=== PATIENT | male | born 1935 | race Caucasian/White ===

== ENCOUNTER 2022-10-07 07:06 | Emergency (ER) | payer OTHER ==
[2022-10-07 07:49] LABS: ESTIMATED GFR 54 mL/min (>60)
== END 2022-10-07 10:06 | disposition home or self-care (01) ==
LOC: FB.ED 07:06
DX: I50.9 Heart failure, unspecified (principal); E11.9 Type 2 diabetes mellitus without complications; D64.9 Anemia, unspecified; Z87.891 Personal history of nicotine dependence; Z95.0 Presence of cardiac pacemaker
CPT/HCPCS: 36415; 71045; 80053; 83880; 84484; 85025; 85610; 85730; 93005; 99285

== ENCOUNTER 2022-10-13 12:35 | Inpatient (IN) | payer MEDICARE, OTHER ==
[2022-10-13] MEDS ORDERED: Sodium Chloride 0.9% 10 ML Syringe FLUSH PRN (13:02)
[2022-10-13] MEDS ORDERED: Sodium Chloride 0.9% 500 ML IV ONE (13:26)
[2022-10-13 13:47] LABS: ESTIMATED GFR 59 mL/min (>60)
[2022-10-13 16:29] LABS: CORONAVIRUS COVID-19 NAA NEGATIVE (NEGATIVE)
[2022-10-13] MEDS ORDERED: Bisacodyl 10 MG Supp RECTAL PRN (16:50)
[2022-10-13] MEDS ORDERED: Phytonadione 5 MG Tab PO ONE (17:00)
[2022-10-13] MEDS ORDERED: Warfarin Sliding Scale PO SCH (17:00)
[2022-10-13] MEDS: Acetaminophen 325 MG Tab PO SCH ×2 (17:22→21:08)
[2022-10-13] MEDS: Sodium Chloride 0.9% 1,000 ML IV SCH (17:25)
[2022-10-13] MEDS ORDERED: CITALOPRAM 10 MG PO SCH (21:00)
[2022-10-13] MEDS ORDERED: Simvastatin 40 MG Tab *PT OWN MED PO SCH (21:00)
[2022-10-13] MEDS ORDERED: Metoprolol Succinate 50 MG Tab.ER *PT OWN MED PO SCH (21:00)
[2022-10-13] MEDS ORDERED: Melatonin 3 MG Tab PO ONE (21:00)
[2022-10-13] MEDS ORDERED: Melatonin 3 MG Tab PO SCH (21:00)
[2022-10-14] MEDS: Sodium Chloride 0.9% 1,000 ML IV SCH (03:25)
[2022-10-14 06:30] LABS: ESTIMATED GFR 66 mL/min (>60)
[2022-10-14] MEDS: Metoprolol Succinate 50 MG Tab.ER PO SCH ×2 (11:06→21:08)
[2022-10-14] MEDS: glipiZIDE 5 MG Tab.ER PO SCH (11:06)
[2022-10-14] MEDS: Ferrous Sulfate 325 MG Tab PO SCH (11:06)
[2022-10-14] MEDS: Acetaminophen 325 MG Tab PO SCH ×4 (11:38→21:09)
[2022-10-14] MEDS: Magnesium Chloride 64 MG Tab.ER PO SCH (11:40)
[2022-10-14] MEDS: Donepezil 5 MG Tab PO SCH (21:05)
[2022-10-14] MEDS: Citalopram 10 MG Tab PO SCH (21:06)
[2022-10-14] MEDS: Melatonin 3 MG Tab PO SCH (21:07)
[2022-10-14] MEDS: Tamsulosin 0.4 MG Cap.ER PO SCH (21:07)
[2022-10-14] MEDS: Simvastatin 40 MG Tab PO SCH (21:10)
[2022-10-15] MEDS: Magnesium Chloride 64 MG Tab.ER PO SCH (08:17)
[2022-10-15] MEDS: glipiZIDE 5 MG Tab.ER PO SCH (08:17)
[2022-10-15] MEDS: Acetaminophen 325 MG Tab PO SCH ×4 (08:17→20:10)
[2022-10-15] MEDS: Metoprolol Succinate 50 MG Tab.ER PO SCH ×2 (08:17→20:09)
[2022-10-15] MEDS: Ferrous Sulfate 325 MG Tab PO SCH (08:17)
[2022-10-15] MEDS ORDERED: QUEtiapine 25 MG Tab PO PRN (17:14)
[2022-10-15] MEDS ORDERED: LORazepam 0.5 MG Tab PO PRN (17:16)
[2022-10-15] MEDS: Donepezil 5 MG Tab PO SCH (20:07)
[2022-10-15] MEDS: Tamsulosin 0.4 MG Cap.ER PO SCH (20:07)
[2022-10-15] MEDS: Citalopram 10 MG Tab PO SCH (20:07)
[2022-10-15] MEDS: Melatonin 3 MG Tab PO SCH (20:08)
[2022-10-15] MEDS: Simvastatin 40 MG Tab PO SCH (20:08)
[2022-10-16] MEDS: Ferrous Sulfate 325 MG Tab PO SCH (11:00)
[2022-10-16] MEDS: Metoprolol Succinate 50 MG Tab.ER PO SCH ×2 (11:00→20:49)
[2022-10-16] MEDS: Magnesium Chloride 64 MG Tab.ER PO SCH (11:00)
[2022-10-16] MEDS: glipiZIDE 5 MG Tab.ER PO SCH (11:00)
[2022-10-16] MEDS: Acetaminophen 325 MG Tab PO SCH ×4 (11:01→20:45)
[2022-10-16] MEDS: Apixaban 5 MG Tab PO SCH ×2 (11:02→20:45)
[2022-10-16] MEDS: Donepezil 5 MG Tab PO SCH (20:45)
[2022-10-16] MEDS: Tamsulosin 0.4 MG Cap.ER PO SCH (20:45)
[2022-10-16] MEDS: Citalopram 10 MG Tab PO SCH (20:45)
[2022-10-16] MEDS: Melatonin 3 MG Tab PO SCH (20:45)
[2022-10-16] MEDS: Simvastatin 40 MG Tab PO SCH (20:47)
[2022-10-17] MEDS: Acetaminophen 325 MG Tab PO SCH ×4 (09:34→20:16)
[2022-10-17] MEDS: Metoprolol Succinate 50 MG Tab.ER PO SCH ×2 (09:35→20:15)
[2022-10-17] MEDS: Ferrous Sulfate 325 MG Tab PO SCH (09:36)
[2022-10-17] MEDS: glipiZIDE 5 MG Tab.ER PO SCH (09:36)
[2022-10-17] MEDS: Apixaban 5 MG Tab PO SCH ×2 (09:36→20:15)
[2022-10-17] MEDS: Magnesium Chloride 64 MG Tab.ER PO SCH (09:36)
[2022-10-17] MEDS: Polyethylene Glycol 3350 Powder 17 GM Packet PO SCH (09:45)
[2022-10-17] MEDS: Tamsulosin 0.4 MG Cap.ER PO SCH (20:14)
[2022-10-17] MEDS: Simvastatin 40 MG Tab PO SCH (20:14)
[2022-10-17] MEDS: Citalopram 10 MG Tab PO SCH (20:15)
[2022-10-17] MEDS: Donepezil 5 MG Tab PO SCH (20:15)
[2022-10-17] MEDS: Melatonin 3 MG Tab PO SCH (20:15)
[2022-10-18] MEDS: Acetaminophen 325 MG Tab PO SCH ×4 (08:25→20:10)
[2022-10-18] MEDS: Apixaban 5 MG Tab PO SCH ×2 (08:26→20:11)
[2022-10-18] MEDS: glipiZIDE 5 MG Tab.ER PO SCH (08:26)
[2022-10-18] MEDS: Ferrous Sulfate 325 MG Tab PO SCH (08:27)
[2022-10-18] MEDS: Metoprolol Succinate 50 MG Tab.ER PO SCH ×2 (08:27→20:13)
[2022-10-18] MEDS: Magnesium Chloride 64 MG Tab.ER PO SCH (08:27)
[2022-10-18] MEDS: Polyethylene Glycol 3350 Powder 17 GM Packet PO SCH (08:34)
[2022-10-18] MEDS: Tamsulosin 0.4 MG Cap.ER PO SCH (20:10)
[2022-10-18] MEDS: Citalopram 10 MG Tab PO SCH (20:11)
[2022-10-18] MEDS: Melatonin 3 MG Tab PO SCH (20:11)
[2022-10-18] MEDS: Simvastatin 40 MG Tab PO SCH (20:11)
[2022-10-18] MEDS: Donepezil 5 MG Tab PO SCH (20:11)
[2022-10-19] MEDS: Acetaminophen 325 MG Tab PO SCH ×2 (08:39→14:10)
[2022-10-19] MEDS: Metoprolol Succinate 50 MG Tab.ER PO SCH (08:40)
[2022-10-19] MEDS: Ferrous Sulfate 325 MG Tab PO SCH (08:40)
[2022-10-19] MEDS: glipiZIDE 5 MG Tab.ER PO SCH (08:40)
[2022-10-19] MEDS: Apixaban 5 MG Tab PO SCH (08:41)
[2022-10-19] MEDS: Magnesium Chloride 64 MG Tab.ER PO SCH (08:41)
[2022-10-19] MEDS: Polyethylene Glycol 3350 Powder 17 GM Packet PO SCH (08:45)
[2022-10-19] MEDS ORDERED: Lidocaine 4% 1 each Patch TOP SCH ×3 (13:45→13:50)
== END 2022-10-19 14:25 | disposition home health service (06) | DRG 556 ==
LOC: FB.ED 12:35 → FB.MS 16:27 → OBSVTOIN 10-14 11:21
PROVIDERS: ADMIT Family Medicine; ATTEND Family Medicine
DX: R26.2 Difficulty in walking, not elsewhere classified (principal); I50.22 Chronic systolic (congestive) heart failure; R53.1 Weakness; R29.818 Other symptoms and signs involving the nervous system; R41.89 Other symptoms and signs involving cognitive functions and awareness; D64.9 Anemia, unspecified; Z20.822 Contact with and (suspected) exposure to COVID-19; Z66 Do not resuscitate; R79.1 Abnormal coagulation profile; I48.0 Paroxysmal atrial fibrillation; E78.00 Pure hypercholesterolemia, unspecified; I25.10 Atherosclerotic heart disease of native coronary artery without angina pectoris; I11.0 Hypertensive heart disease with heart failure; Z96.642 Presence of left artificial hip joint; E86.0 Dehydration; R41.0 Disorientation, unspecified; M54.9 Dorsalgia, unspecified; E11.9 Type 2 diabetes mellitus without complications; M54.2 Cervicalgia; Z95.0 Presence of cardiac pacemaker; Z79.01 Long term (current) use of anticoagulants; Z79.899 Other long term (current) drug therapy
CPT/HCPCS: 0240U; 36415; 70450; 72072; 72100; 72125; 72192; 80048; 80053; 81001; 83605; 83735; 84484; 85025; 85610; 86140; 93005; 93010; 93306; 96360; 96361; 97116-GP; 97161-GP; 97165-GO; 97530-GO; 97530-GP; 97535-GO; 99223; 99233; 99238; 99285; A9270-GY; G0378; J7030; J7040; U0002

== ENCOUNTER 2022-12-22 14:36 | Emergency (ER) | payer MEDICARE, OTHER ==
[2022-12-22] MEDS ORDERED: Sodium Chloride 0.9% 1,000 ML IV ONE ×2 (14:59→16:40)
[2022-12-22 15:15] LABS: BASOPHILS PERCENT AUTO 0.7 % (0.3-3.8); EOSINOPHILS PERCENT AUTO 0.3 % (0.1-6.8); HEMATOCRIT 30.8 % (38.3-50.1); HEMOGLOBIN 10.3 g/dL (12.9-17.7); LYMPHOCYTES ABSOLUTE AUTO 0.8 x10-3/uL (0.5-4.5); LYMPHOCYTES PERCENT AUTO 16.9 % (15.8-45.3); MEAN CORPUSCULAR HEMOGLOBIN 32.9 pg (27.0-33.3); MEAN CORPUSCULAR HGB CONC 33.4 g/dL (28.7-35.3); MEAN CORPUSCULAR VOLUME 98.5 fL (80.8-98.7); MEAN PLATELET VOLUME 8.5 fL (6.7-11.0); MONOCYTES ABSOLUTE AUTO 0.6 x10-3/uL (0.0-1.2); MONOCYTES PERCENT AUTO 11.7 % (5.5-15.2); NEUTROPHILS ABSOLUTE AUTO 3.4 x10-3/uL (1.7-6.9); NEUTROPHILS PERCENT AUTO 70.4 % (40.3-71.8); PLATELET COUNT,PLT 147 x10(3)uL (117-477); RED BLOOD CELL COUNT 3.13 x10(6)uL (3.90-5.90); RED CELL DISTRIBUTION WIDTH 14.4 % (12.4-15.0); WHITE BLOOD CELL COUNT,WBC 4.9 x10-3/uL (3.2-10.1)
[2022-12-22 15:18] LABS: BLOOD UREA NITROGEN,BUN 33 mg/dL (7-18); CALCIUM 8.9 mg/dL (8.6-10.2); CARBON DIOXIDE,CO2 28 mmol/L (21-32); CHLORIDE,CL 101 mmol/L (100-110); CREATININE 1.5 mg/dL (0.70-1.30); EST CRCL DRUG DOSING (CG) 39.27 mL/min; ESTIMATED GFR 45 mL/min (>60); GLUCOSE RANDOM 106 mg/dL (80-116); POTASSIUM,K 4.7 mmol/L (3.5-5.3); SODIUM,NA 136 mmol/L (135-145)
[2022-12-22 15:20] LABS: INR 1.05 (1.00-1.24); PROTHROMBIN TIME 10.8 sec (9.0-11.1)
[2022-12-22 15:24] LABS: A/G RATIO 1.1; ALANINE AMINOTRANSFERASE,ALT 42 U/L (12-36); ALBUMIN 3.6 g/dL (3.2-4.6); ALKALINE PHOSPHATASE 66 IU/L (56-112); ASPARTATE AMNIOTRANSFERASE,AST 26 IU/L (5-25); BILIRUBIN TOTAL 0.4 mg/dL (0.1-1.3); PROTEIN TOTAL,TP 6.8 g/dL (6.0-8.0)
[2022-12-22 18:11] LABS: APPEARANCE,URINE CLEAR (CLEAR); BACTERIA,URINE FEW (NS); BILIRUBIN,URINE NEGATIVE (NEGATIVE); COLOR,URINE YELLOW (YELLOW); GLUCOSE,URINE NORMAL (NORMAL); KETONES,URINE NEGATIVE (NEGATIVE); LEUKOCYTE ESTERASE,URINE NEGATIVE (NEGATIVE); NITRITE,URINE NEGATIVE (NEGATIVE); OCCULT BLOOD,URINE NEGATIVE (NEGATIVE); PROTEIN,URINE NEGATIVE (NEGATIVE); RBC,URINE 0-5 (0-5); SQUAMOUS EPITHELIAL CELLS,UR FEW (NS,R,O); UROBILINOGEN,URINE NORMAL (NEGATIVE); WBC,URINE 0-5 (0-5)
== END 2022-12-22 18:26 ==
LOC: FB.ED 14:36
DX: E86.0 Dehydration (principal); R79.89 Other specified abnormal findings of blood chemistry; R63.0 Anorexia; F03.90 Unspecified dementia, unspecified severity, without behavioral disturbance, psychotic disturbance, mood disturbance, and anxiety; I11.0 Hypertensive heart disease with heart failure; I50.9 Heart failure, unspecified; I25.10 Atherosclerotic heart disease of native coronary artery without angina pectoris; E78.00 Pure hypercholesterolemia, unspecified; E11.9 Type 2 diabetes mellitus without complications; Z79.01 Long term (current) use of anticoagulants; Z95.1 Presence of aortocoronary bypass graft; Z79.84 Long term (current) use of oral hypoglycemic drugs; Z79.899 Other long term (current) drug therapy
CPT/HCPCS: 36415; 80053; 81001; 85025; 85610; 86140; 96360; 96361; 99285; J7030

== ENCOUNTER 2022-12-31 13:10 | Inpatient (IN) | payer MEDICARE, OTHER ==
[2022-12-31 13:37] LABS: BLOOD UREA NITROGEN,BUN 27 mg/dL (7-18); BUN/CREATININE RATIO 20.8 (9-20); CALCIUM 9.1 mg/dL (8.6-10.2); CARBON DIOXIDE,CO2 29 mmol/L (21-32); CHLORIDE,CL 102 mmol/L (100-110); CREATININE 1.3 mg/dL (0.70-1.30); ESTIMATED GFR 54 mL/min (>60); GLUCOSE RANDOM 130 mg/dL (80-116); POTASSIUM,K 4.5 mmol/L (3.5-5.3); SODIUM,NA 137 mmol/L (135-145)
[2022-12-31 13:38] LABS: BASOPHILS PERCENT AUTO 0.5 % (0.3-3.8); EOSINOPHILS PERCENT AUTO 0.5 % (0.1-6.8); HEMATOCRIT 31.6 % (38.3-50.1); HEMOGLOBIN 10.8 g/dL (12.9-17.7); LYMPHOCYTES ABSOLUTE AUTO 0.6 x10-3/uL (0.5-4.5); LYMPHOCYTES PERCENT AUTO 16.3 % (15.8-45.3); MEAN CORPUSCULAR VOLUME 96.9 fL (80.8-98.7); MEAN PLATELET VOLUME 8.2 fL (6.7-11.0); MONOCYTES ABSOLUTE AUTO 0.4 x10-3/uL (0.0-1.2); MONOCYTES PERCENT AUTO 11.2 % (5.5-15.2); NEUTROPHILS ABSOLUTE AUTO 2.8 x10-3/uL (1.7-6.9); NEUTROPHILS PERCENT AUTO 71.5 % (40.3-71.8); PLATELET COUNT,PLT 140 x10(3)uL (117-477); RED BLOOD CELL COUNT 3.26 x10(6)uL (3.90-5.90); RED CELL DISTRIBUTION WIDTH 14.1 % (12.4-15.0); WHITE BLOOD CELL COUNT,WBC 3.9 x10-3/uL (3.2-10.1)
[2022-12-31 13:48] LABS: A/G RATIO 1.2; ALANINE AMINOTRANSFERASE,ALT 33 U/L (12-36); ALBUMIN 3.6 g/dL (3.2-4.6); ALKALINE PHOSPHATASE 52 IU/L (56-112); ASPARTATE AMNIOTRANSFERASE,AST 26 IU/L (5-25); BILIRUBIN TOTAL 0.4 mg/dL (0.1-1.3); PROTEIN TOTAL,TP 6.5 g/dL (6.0-8.0)
[2022-12-31 13:50] LABS: TROPONIN I 19.5 pg/mL (4.0-60.3)
[2022-12-31] MEDS ORDERED: Sennosides/Docusate Sodium 50-8.6 MG Tab PO PRN (15:12)
[2022-12-31] MEDS ORDERED: Ondansetron 4 MG/2 ML SDV IV PRN (15:12)
[2022-12-31] MEDS ORDERED: guaiFENesin 100 MG/5 ML Soln 5 ML UD Cup PO PRN (15:22)
[2022-12-31] MEDS ORDERED: Loperamide 2 MG Cap PO PRN (15:22)
[2022-12-31] MEDS ORDERED: Polyethylene Glycol 3350 Powder 17 GM Packet PO PRN (15:22)
[2022-12-31] MEDS ORDERED: Magnesium Hydroxide 400 MG/5 ML Susp 30 ML Cup PO PRN (15:22)
[2022-12-31 15:51] LABS: BILIRUBIN,URINE NEGATIVE (NEGATIVE); GLUCOSE,URINE NORMAL (NORMAL); KETONES,URINE NEGATIVE (NEGATIVE); LEUKOCYTE ESTERASE,URINE NEGATIVE (NEGATIVE); NITRITE,URINE NEGATIVE (NEGATIVE); OCCULT BLOOD,URINE NEGATIVE (NEGATIVE); PROTEIN,URINE NEGATIVE (NEGATIVE); UROBILINOGEN,URINE NORMAL (NEGATIVE)
[2022-12-31 15:56] LABS: APPEARANCE,URINE CLEAR (CLEAR); BACTERIA,URINE RARE (NS); COLOR,URINE YELLOW (YELLOW); RBC,URINE 0-5 (0-5); SQUAMOUS EPITHELIAL CELLS,UR OCCASIONAL (NS,R,O); WBC,URINE 0-5 (0-5)
[2022-12-31] MEDS ORDERED: Aluminum Hydroxide/Magnesium Hydroxide Susp 30 ML Cup PO PRN (16:21)
[2022-12-31] MEDS ORDERED: Acetaminophen 325 MG Tab PO PRN (16:38)
[2022-12-31] MEDS ORDERED: Acetaminophen 325 MG Tab PO SCH (17:00)
[2022-12-31] MEDS: Citalopram 10 MG Tab PO SCH (20:49)
[2022-12-31] MEDS: Apixaban 5 MG Tab PO SCH (20:49)
[2022-12-31] MEDS: Donepezil 5 MG Tab PO SCH (20:49)
[2022-12-31] MEDS: Tamsulosin 0.4 MG Cap.ER PO SCH (20:49)
[2022-12-31] MEDS: Melatonin 3 MG Tab PO SCH (20:49)
[2022-12-31] MEDS: Calcium Carbonate 500 MG Tablet PO SCH (20:50)
[2022-12-31] MEDS: Metoprolol Succinate 50 MG Tab.ER PO SCH (20:50)
[2022-12-31] MEDS: Simvastatin 40 MG Tab PO SCH (20:50)
[2023-01-01 06:07] LABS: BASOPHILS PERCENT AUTO 0.4 % (0.3-3.8); EOSINOPHILS PERCENT AUTO 0.2 % (0.1-6.8); HEMATOCRIT 32.9 % (38.3-50.1); HEMOGLOBIN 11.1 g/dL (12.9-17.7); LYMPHOCYTES ABSOLUTE AUTO 0.9 x10-3/uL (0.5-4.5); LYMPHOCYTES PERCENT AUTO 15.3 % (15.8-45.3); MEAN CORPUSCULAR HEMOGLOBIN 32.8 pg (27.0-33.3); MEAN CORPUSCULAR HGB CONC 33.7 g/dL (28.7-35.3); MEAN CORPUSCULAR VOLUME 97.4 fL (80.8-98.7); MEAN PLATELET VOLUME 7.8 fL (6.7-11.0); MONOCYTES ABSOLUTE AUTO 0.5 x10-3/uL (0.0-1.2); MONOCYTES PERCENT AUTO 8.8 % (5.5-15.2); NEUTROPHILS ABSOLUTE AUTO 4.2 x10-3/uL (1.7-6.9); NEUTROPHILS PERCENT AUTO 75.3 % (40.3-71.8); PLATELET COUNT,PLT 156 x10(3)uL (117-477); RED BLOOD CELL COUNT 3.38 x10(6)uL (3.90-5.90); RED CELL DISTRIBUTION WIDTH 14.3 % (12.4-15.0); WHITE BLOOD CELL COUNT,WBC 5.6 x10-3/uL (3.2-10.1)
[2023-01-01 06:18] LABS: A/G RATIO 1.1; ALANINE AMINOTRANSFERASE,ALT 34 U/L (12-36); ALBUMIN 3.4 g/dL (3.2-4.6); ALKALINE PHOSPHATASE 56 IU/L (56-112); ASPARTATE AMNIOTRANSFERASE,AST 21 IU/L (5-25); BILIRUBIN TOTAL 0.5 mg/dL (0.1-1.3); BLOOD UREA NITROGEN,BUN 24 mg/dL (7-18); BUN/CREATININE RATIO 18.5 (9-20); CARBON DIOXIDE,CO2 28 mmol/L (21-32); CHLORIDE,CL 101 mmol/L (100-110); CREATININE 1.3 mg/dL (0.70-1.30); EST CRCL DRUG DOSING (CG) 46.38 mL/min; ESTIMATED GFR 54 mL/min (>60); GLUCOSE RANDOM 110 mg/dL (80-116); MAGNESIUM 1.8 mg/dL (1.8-2.5); PROTEIN TOTAL,TP 6.5 g/dL (6.0-8.0); SODIUM,NA 137 mmol/L (135-145)
[2023-01-01] MEDS: Furosemide 20 MG/2 ML VIAL IVPUSH SCH (08:50)
[2023-01-01] MEDS: Magnesium Chloride 64 MG Tab.ER PO SCH (08:50)
[2023-01-01] MEDS: Metoprolol Succinate 50 MG Tab.ER PO SCH ×2 (08:51→21:31)
[2023-01-01] MEDS: Lidocaine 4% 1 each Patch TOP SCH (08:52)
[2023-01-01] MEDS: Ferrous Sulfate 325 MG Tab PO SCH (08:52)
[2023-01-01] MEDS: Calcium Carbonate 500 MG Tablet PO SCH ×2 (08:52→21:31)
[2023-01-01] MEDS: Apixaban 5 MG Tab PO SCH ×2 (08:52→21:31)
[2023-01-01] MEDS: Cholecalciferol (Vitamin D3) 25 MCG Tab PO SCH (08:53)
[2023-01-01] MEDS ORDERED: Polyethylene Glycol 3350 Powder 17 GM Packet PO SCH (09:00)
[2023-01-01] MEDS ORDERED: glipiZIDE 5 MG Tab.ER PO SCH (09:00)
[2023-01-01] MEDS: Donepezil 5 MG Tab PO SCH (21:31)
[2023-01-01] MEDS: Melatonin 3 MG Tab PO SCH (21:31)
[2023-01-01] MEDS: Tamsulosin 0.4 MG Cap.ER PO SCH (21:31)
[2023-01-01] MEDS: Simvastatin 40 MG Tab PO SCH (21:31)
[2023-01-01] MEDS: Citalopram 10 MG Tab PO SCH (21:31)
[2023-01-02 06:48] LABS: BASOPHILS PERCENT AUTO 0.2 % (0.3-3.8); HEMATOCRIT 30.8 % (38.3-50.1); HEMOGLOBIN 10.5 g/dL (12.9-17.7); LYMPHOCYTES ABSOLUTE AUTO 0.4 x10-3/uL (0.5-4.5); MEAN CORPUSCULAR HEMOGLOBIN 33.1 pg (27.0-33.3); MEAN CORPUSCULAR HGB CONC 34.2 g/dL (28.7-35.3); MEAN CORPUSCULAR VOLUME 96.8 fL (80.8-98.7); MEAN PLATELET VOLUME 8.4 fL (6.7-11.0); MONOCYTES ABSOLUTE AUTO 0.5 x10-3/uL (0.0-1.2); MONOCYTES PERCENT AUTO 9.9 % (5.5-15.2); NEUTROPHILS ABSOLUTE AUTO 4.4 x10-3/uL (1.7-6.9); NEUTROPHILS PERCENT AUTO 82.9 % (40.3-71.8); PLATELET COUNT,PLT 130 x10(3)uL (117-477); RED BLOOD CELL COUNT 3.18 x10(6)uL (3.90-5.90); RED CELL DISTRIBUTION WIDTH 13.8 % (12.4-15.0); WHITE BLOOD CELL COUNT,WBC 5.3 x10-3/uL (3.2-10.1)
[2023-01-02] MEDS: Pantoprazole 40 MG Tab.CR PO SCH (06:53)
[2023-01-02 06:55] LABS: BLOOD UREA NITROGEN,BUN 22 mg/dL (7-18); BUN/CREATININE RATIO 18.3 (9-20); CALCIUM 8.9 mg/dL (8.6-10.2); CARBON DIOXIDE,CO2 28 mmol/L (21-32); CHLORIDE,CL 99 mmol/L (100-110); CREATININE 1.2 mg/dL (0.70-1.30); EST CRCL DRUG DOSING (CG) 50.24 mL/min; ESTIMATED GFR 59 mL/min (>60); GLUCOSE RANDOM 197 mg/dL (80-116); SODIUM,NA 135 mmol/L (135-145)
[2023-01-02] MEDS: Calcium Carbonate 500 MG Tablet PO SCH ×2 (08:56→20:22)
[2023-01-02] MEDS: Metoprolol Succinate 50 MG Tab.ER PO SCH ×2 (08:56→20:23)
[2023-01-02] MEDS: Cholecalciferol (Vitamin D3) 25 MCG Tab PO SCH (08:56)
[2023-01-02] MEDS: Ferrous Sulfate 325 MG Tab PO SCH (08:57)
[2023-01-02] MEDS: Apixaban 5 MG Tab PO SCH ×2 (08:57→20:21)
[2023-01-02] MEDS: Magnesium Chloride 64 MG Tab.ER PO SCH (08:57)
[2023-01-02] MEDS: Furosemide 20 MG/2 ML VIAL IVPUSH SCH (08:58)
[2023-01-02] MEDS: Empagliflozin 10 MG Tab PO SCH (08:58)
[2023-01-02] MEDS: Lidocaine 4% 1 each Patch TOP SCH (09:11)
[2023-01-02] MEDS: Furosemide 40 MG/4 ML VIAL IV SCH ×2 (13:02→20:22)
[2023-01-02] MEDS: cefTRIAXone 1 GM Vial IVPUSH SCH (13:03)
[2023-01-02] MEDS: Sodium Chloride 0.9% 10 ML Syringe FLUSH PRN ×3 (13:04→20:25)
[2023-01-02] MEDS: Donepezil 5 MG Tab PO SCH (20:21)
[2023-01-02] MEDS: Tamsulosin 0.4 MG Cap.ER PO SCH (20:21)
[2023-01-02] MEDS: Citalopram 10 MG Tab PO SCH (20:21)
[2023-01-02] MEDS: Melatonin 3 MG Tab PO SCH (20:22)
[2023-01-02] MEDS: Simvastatin 40 MG Tab PO SCH (20:23)
[2023-01-03] MEDS: Pantoprazole 40 MG Tab.CR PO SCH (06:02)
[2023-01-03 06:21] LABS: BASOPHILS PERCENT AUTO 0.4 % (0.3-3.8); EOSINOPHILS PERCENT AUTO 0.5 % (0.1-6.8); HEMATOCRIT 32.9 % (38.3-50.1); HEMOGLOBIN 11.2 g/dL (12.9-17.7); LYMPHOCYTES ABSOLUTE AUTO 0.7 x10-3/uL (0.5-4.5); LYMPHOCYTES PERCENT AUTO 16.7 % (15.8-45.3); MEAN CORPUSCULAR HEMOGLOBIN 32.5 pg (27.0-33.3); MEAN CORPUSCULAR HGB CONC 33.9 g/dL (28.7-35.3); MEAN CORPUSCULAR VOLUME 95.9 fL (80.8-98.7); MEAN PLATELET VOLUME 8.4 fL (6.7-11.0); MONOCYTES ABSOLUTE AUTO 0.6 x10-3/uL (0.0-1.2); MONOCYTES PERCENT AUTO 13.9 % (5.5-15.2); NEUTROPHILS PERCENT AUTO 68.5 % (40.3-71.8); PLATELET COUNT,PLT 141 x10(3)uL (117-477); RED BLOOD CELL COUNT 3.44 x10(6)uL (3.90-5.90); RED CELL DISTRIBUTION WIDTH 13.6 % (12.4-15.0); WHITE BLOOD CELL COUNT,WBC 4.4 x10-3/uL (3.2-10.1)
[2023-01-03 06:30] LABS: BLOOD UREA NITROGEN,BUN 29 mg/dL (7-18); BUN/CREATININE RATIO 20.7 (9-20); CARBON DIOXIDE,CO2 30 mmol/L (21-32); CHLORIDE,CL 97 mmol/L (100-110); CREATININE 1.4 mg/dL (0.70-1.30); ESTIMATED GFR 49 mL/min (>60); GLUCOSE RANDOM 136 mg/dL (80-116); POTASSIUM,K 3.3 mmol/L (3.5-5.3); SODIUM,NA 136 mmol/L (135-145)
[2023-01-03 06:31] LABS: EST CRCL DRUG DOSING (CG) 40.39 mL/min
[2023-01-03] MEDS: Lidocaine 4% 1 each Patch TOP SCH (08:07)
[2023-01-03] MEDS: Magnesium Chloride 64 MG Tab.ER PO SCH (08:19)
[2023-01-03] MEDS: Cholecalciferol (Vitamin D3) 25 MCG Tab PO SCH (08:20)
[2023-01-03] MEDS: Empagliflozin 10 MG Tab PO SCH (08:20)
[2023-01-03] MEDS: Ferrous Sulfate 325 MG Tab PO SCH (08:21)
[2023-01-03] MEDS: Apixaban 5 MG Tab PO SCH ×2 (08:21→20:52)
[2023-01-03] MEDS: Metoprolol Succinate 50 MG Tab.ER PO SCH ×2 (08:22→20:53)
[2023-01-03] MEDS: Furosemide 40 MG/4 ML VIAL IV SCH (08:34)
[2023-01-03] MEDS: Sodium Chloride 0.9% 10 ML Syringe FLUSH PRN ×2 (08:39→13:10)
[2023-01-03] MEDS ORDERED: Potassium Chloride 20 MEQ Tab.ER PO ONE (10:32)
[2023-01-03] MEDS: Potassium Chloride 20 MEQ Tab.ER PO SCH (12:10)
[2023-01-03] MEDS: Calcium Carbonate 500 MG Tablet PO SCH ×2 (12:11→20:52)
[2023-01-03] MEDS: cefTRIAXone 1 GM Vial IVPUSH SCH (13:06)
[2023-01-03] MEDS: Donepezil 5 MG Tab PO SCH (20:52)
[2023-01-03] MEDS: Tamsulosin 0.4 MG Cap.ER PO SCH (20:52)
[2023-01-03] MEDS: Citalopram 10 MG Tab PO SCH (20:52)
[2023-01-03] MEDS: Melatonin 3 MG Tab PO SCH (20:52)
[2023-01-03] MEDS: Simvastatin 40 MG Tab PO SCH (20:53)
[2023-01-04] MEDS: Pantoprazole 40 MG Tab.CR PO SCH (05:29)
[2023-01-04 06:51] LABS: BASOPHILS PERCENT AUTO 0.4 % (0.3-3.8); EOSINOPHILS ABSOLUTE AUTO 0.1 x10-3/uL (0.0-0.6); EOSINOPHILS PERCENT AUTO 1.2 % (0.1-6.8); HEMATOCRIT 32.8 % (38.3-50.1); HEMOGLOBIN 11.2 g/dL (12.9-17.7); LYMPHOCYTES ABSOLUTE AUTO 0.7 x10-3/uL (0.5-4.5); LYMPHOCYTES PERCENT AUTO 17.6 % (15.8-45.3); MEAN PLATELET VOLUME 8.5 fL (6.7-11.0); MONOCYTES ABSOLUTE AUTO 0.6 x10-3/uL (0.0-1.2); MONOCYTES PERCENT AUTO 13.3 % (5.5-15.2); NEUTROPHILS ABSOLUTE AUTO 2.8 x10-3/uL (1.7-6.9); NEUTROPHILS PERCENT AUTO 67.5 % (40.3-71.8); PLATELET COUNT,PLT 143 x10(3)uL (117-477); RED BLOOD CELL COUNT 3.38 x10(6)uL (3.90-5.90); RED CELL DISTRIBUTION WIDTH 13.7 % (12.4-15.0); WHITE BLOOD CELL COUNT,WBC 4.2 x10-3/uL (3.2-10.1)
[2023-01-04 06:54] LABS: BLOOD UREA NITROGEN,BUN 37 mg/dL (7-18); BUN/CREATININE RATIO 26.4 (9-20); CALCIUM 8.7 mg/dL (8.6-10.2); CARBON DIOXIDE,CO2 31 mmol/L (21-32); CHLORIDE,CL 100 mmol/L (100-110); CREATININE 1.4 mg/dL (0.70-1.30); ESTIMATED GFR 49 mL/min (>60); GLUCOSE RANDOM 146 mg/dL (80-116); POTASSIUM,K 3.7 mmol/L (3.5-5.3); SODIUM,NA 137 mmol/L (135-145)
[2023-01-04] MEDS ORDERED: Furosemide 40 MG Tab PO ONE (07:10)
[2023-01-04] MEDS: Lidocaine 4% 1 each Patch TOP SCH (08:13)
[2023-01-04] MEDS: Amoxicillin/Clavulanate K 875-125 MG Tab PO SCH ×2 (08:19→17:34)
[2023-01-04] MEDS: Apixaban 5 MG Tab PO SCH ×2 (08:20→20:15)
[2023-01-04] MEDS: Ferrous Sulfate 325 MG Tab PO SCH (08:21)
[2023-01-04] MEDS: Empagliflozin 10 MG Tab PO SCH (08:21)
[2023-01-04] MEDS: Potassium Chloride 20 MEQ Tab.ER PO SCH (08:22)
[2023-01-04] MEDS: Magnesium Chloride 64 MG Tab.ER PO SCH (08:22)
[2023-01-04] MEDS: Calcium Carbonate 500 MG Tablet PO SCH ×2 (08:23→20:15)
[2023-01-04] MEDS: Metoprolol Succinate 50 MG Tab.ER PO SCH ×2 (08:24→22:01)
[2023-01-04] MEDS: Cholecalciferol (Vitamin D3) 25 MCG Tab PO SCH (08:24)
[2023-01-04] MEDS: Donepezil 5 MG Tab PO SCH (20:15)
[2023-01-04] MEDS: Citalopram 10 MG Tab PO SCH (20:15)
[2023-01-04] MEDS: Tamsulosin 0.4 MG Cap.ER PO SCH (20:15)
[2023-01-04] MEDS: Simvastatin 40 MG Tab PO SCH (20:16)
[2023-01-04] MEDS: Melatonin 3 MG Tab PO SCH (20:17)
[2023-01-04] MEDS: Sodium Chloride 0.9% 10 ML Syringe FLUSH PRN (22:18)
[2023-01-05] MEDS: Pantoprazole 40 MG Tab.CR PO SCH (05:45)
[2023-01-05 06:37] LABS: EOSINOPHILS PERCENT AUTO 0.9 % (0.1-6.8); HEMATOCRIT 32.1 % (38.3-50.1); HEMOGLOBIN 11.1 g/dL (12.9-17.7); LYMPHOCYTES ABSOLUTE AUTO 0.7 x10-3/uL (0.5-4.5); LYMPHOCYTES PERCENT AUTO 16.2 % (15.8-45.3); MEAN CORPUSCULAR HEMOGLOBIN 33.2 pg (27.0-33.3); MEAN CORPUSCULAR HGB CONC 34.6 g/dL (28.7-35.3); MEAN PLATELET VOLUME 8.1 fL (6.7-11.0); MONOCYTES ABSOLUTE AUTO 0.5 x10-3/uL (0.0-1.2); MONOCYTES PERCENT AUTO 11.4 % (5.5-15.2); NEUTROPHILS ABSOLUTE AUTO 2.8 x10-3/uL (1.7-6.9); NEUTROPHILS PERCENT AUTO 70.5 % (40.3-71.8); PLATELET COUNT,PLT 151 x10(3)uL (117-477); RED BLOOD CELL COUNT 3.34 x10(6)uL (3.90-5.90); RED CELL DISTRIBUTION WIDTH 13.4 % (12.4-15.0)
[2023-01-05 06:43] LABS: BLOOD UREA NITROGEN,BUN 38 mg/dL (7-18); BUN/CREATININE RATIO 27.1 (9-20); CARBON DIOXIDE,CO2 30 mmol/L (21-32); CHLORIDE,CL 101 mmol/L (100-110); CREATININE 1.4 mg/dL (0.70-1.30); ESTIMATED GFR 49 mL/min (>60); GLUCOSE RANDOM 145 mg/dL (80-116); POTASSIUM,K 4.2 mmol/L (3.5-5.3); SODIUM,NA 138 mmol/L (135-145)
[2023-01-05] MEDS: Lidocaine 4% 1 each Patch TOP SCH (08:01)
[2023-01-05] MEDS: Amoxicillin/Clavulanate K 875-125 MG Tab PO SCH ×2 (08:06→17:54)
[2023-01-05] MEDS: Ferrous Sulfate 325 MG Tab PO SCH (08:07)
[2023-01-05] MEDS: Apixaban 5 MG Tab PO SCH ×2 (08:07→20:26)
[2023-01-05] MEDS: Empagliflozin 10 MG Tab PO SCH (08:08)
[2023-01-05] MEDS: Magnesium Chloride 64 MG Tab.ER PO SCH (08:09)
[2023-01-05] MEDS: Calcium Carbonate 500 MG Tablet PO SCH ×2 (08:09→20:26)
[2023-01-05] MEDS: Metoprolol Succinate 50 MG Tab.ER PO SCH ×2 (08:10→20:34)
[2023-01-05] MEDS: Cholecalciferol (Vitamin D3) 25 MCG Tab PO SCH (08:11)
[2023-01-05] MEDS: Potassium Chloride 20 MEQ Tab.ER PO SCH (08:11)
[2023-01-05] MEDS ORDERED: Furosemide 20 MG Tab PO ONE (08:46)
[2023-01-05] MEDS: Tamsulosin 0.4 MG Cap.ER PO SCH (20:26)
[2023-01-05] MEDS: Melatonin 3 MG Tab PO SCH (20:26)
[2023-01-05] MEDS: Citalopram 10 MG Tab PO SCH (20:26)
[2023-01-05] MEDS: Donepezil 5 MG Tab PO SCH (20:26)
[2023-01-05] MEDS: Simvastatin 40 MG Tab PO SCH (20:35)
[2023-01-06] MEDS: Pantoprazole 40 MG Tab.CR PO SCH (05:48)
[2023-01-06 05:56] LABS: BLOOD UREA NITROGEN,BUN 38 mg/dL (7-18); BUN/CREATININE RATIO 27.1 (9-20); CALCIUM 9.1 mg/dL (8.6-10.2); CARBON DIOXIDE,CO2 30 mmol/L (21-32); CHLORIDE,CL 103 mmol/L (100-110); CREATININE 1.4 mg/dL (0.70-1.30); ESTIMATED GFR 49 mL/min (>60); GLUCOSE RANDOM 148 mg/dL (80-116); POTASSIUM,K 4.7 mmol/L (3.5-5.3); SODIUM,NA 140 mmol/L (135-145)
[2023-01-06 06:02] LABS: EOSINOPHILS ABSOLUTE AUTO 0.1 x10-3/uL (0.0-0.6); EOSINOPHILS PERCENT AUTO 1.3 % (0.1-6.8); HEMATOCRIT 32.9 % (38.3-50.1); HEMOGLOBIN 11.3 g/dL (12.9-17.7); LYMPHOCYTES PERCENT AUTO 20.7 % (15.8-45.3); MEAN CORPUSCULAR HEMOGLOBIN 33.5 pg (27.0-33.3); MEAN CORPUSCULAR HGB CONC 34.5 g/dL (28.7-35.3); MEAN CORPUSCULAR VOLUME 97.1 fL (80.8-98.7); MEAN PLATELET VOLUME 8.2 fL (6.7-11.0); MONOCYTES ABSOLUTE AUTO 0.6 x10-3/uL (0.0-1.2); MONOCYTES PERCENT AUTO 12.9 % (5.5-15.2); NEUTROPHILS ABSOLUTE AUTO 3.2 x10-3/uL (1.7-6.9); NEUTROPHILS PERCENT AUTO 64.1 % (40.3-71.8); PLATELET COUNT,PLT 153 x10(3)uL (117-477); RED BLOOD CELL COUNT 3.39 x10(6)uL (3.90-5.90); RED CELL DISTRIBUTION WIDTH 13.5 % (12.4-15.0); WHITE BLOOD CELL COUNT,WBC 4.9 x10-3/uL (3.2-10.1)
[2023-01-06] MEDS: Lidocaine 4% 1 each Patch TOP SCH (08:16)
[2023-01-06] MEDS: Apixaban 5 MG Tab PO SCH (08:17)
[2023-01-06] MEDS: Amoxicillin/Clavulanate K 875-125 MG Tab PO SCH (08:17)
[2023-01-06] MEDS: Empagliflozin 10 MG Tab PO SCH (08:18)
[2023-01-06] MEDS: Potassium Chloride 20 MEQ Tab.ER PO SCH (08:18)
[2023-01-06] MEDS: Ferrous Sulfate 325 MG Tab PO SCH (08:18)
[2023-01-06] MEDS: Calcium Carbonate 500 MG Tablet PO SCH (08:19)
[2023-01-06] MEDS: Magnesium Chloride 64 MG Tab.ER PO SCH (08:19)
[2023-01-06] MEDS: Cholecalciferol (Vitamin D3) 25 MCG Tab PO SCH (08:20)
[2023-01-06] MEDS: Metoprolol Succinate 50 MG Tab.ER PO SCH (08:23)
== END 2023-01-06 07:00 | DRG 193 ==
LOC: FB.ED 13:10 → FB.MS 15:12 → UNDOADMIN 15:46 → UNDODISIN 01-06 07:00
PROVIDERS: ADMIT Family Medicine; ATTEND Student in an Organized Health Care Education/Training Program
DX: J18.9 Pneumonia, unspecified organism (principal); G93.41 Metabolic encephalopathy; J90 Pleural effusion, not elsewhere classified; G93.40 Encephalopathy, unspecified; I13.0 Hypertensive heart and chronic kidney disease with heart failure and stage 1 through stage 4 chronic kidney disease, or unspecified chronic kidney disease; I50.22 Chronic systolic (congestive) heart failure; H90.3 Sensorineural hearing loss, bilateral; I48.0 Paroxysmal atrial fibrillation; I25.5 Ischemic cardiomyopathy; N40.0 Benign prostatic hyperplasia without lower urinary tract symptoms; R32 Unspecified urinary incontinence; F03.90 Unspecified dementia, unspecified severity, without behavioral disturbance, psychotic disturbance, mood disturbance, and anxiety; E11.22 Type 2 diabetes mellitus with diabetic chronic kidney disease; E86.0 Dehydration; N18.31 Chronic kidney disease, stage 3a; E11.40 Type 2 diabetes mellitus with diabetic neuropathy, unspecified; Z96.649 Presence of unspecified artificial hip joint; D63.1 Anemia in chronic kidney disease; E78.00 Pure hypercholesterolemia, unspecified; I25.10 Atherosclerotic heart disease of native coronary artery without angina pectoris; Z95.0 Presence of cardiac pacemaker; Z98.890 Other specified postprocedural states; Z86.010 Personal history of colon polyps; Z95.1 Presence of aortocoronary bypass graft; Z87.891 Personal history of nicotine dependence; Z85.038 Personal history of other malignant neoplasm of large intestine; Z79.899 Other long term (current) drug therapy; Z79.84 Long term (current) use of oral hypoglycemic drugs; Z79.01 Long term (current) use of anticoagulants
CPT/HCPCS: 36415; 70450; 71045; 80048; 80053; 81001; 83735; 83880; 84484; 85025; 87040; 93005; 93010; 97116-GP; 97161-GP; 97165-GO; 97530-GO; 97535-GO; 99223; 99233; 99238; 99285; A9270-GY; C8929; J0696; J1940; J3490

== ENCOUNTER 2023-01-06 07:00 | Inpatient (IN) | payer MEDICARE, OTHER ==
[2023-01-06] MEDS ORDERED: guaiFENesin 100 MG/5 ML Soln 5 ML UD Cup PO PRN (08:52)
[2023-01-06] MEDS ORDERED: Magnesium Hydroxide 400 MG/5 ML Susp 30 ML Cup PO PRN (08:52)
[2023-01-06] MEDS ORDERED: Polyethylene Glycol 3350 Powder 17 GM Packet PO PRN (08:52)
[2023-01-06] MEDS ORDERED: Loperamide 2 MG Cap PO PRN (08:52)
[2023-01-06] MEDS ORDERED: Acetaminophen 325 MG Tab PO PRN (09:00)
[2023-01-06] MEDS: Furosemide 40 MG Tab PO SCH (10:54)
[2023-01-06] MEDS: Amoxicillin/Clavulanate K 875-125 MG Tab PO SCH (20:55)
[2023-01-06] MEDS: Simvastatin 40 MG Tab PO SCH (21:00)
[2023-01-06] MEDS: Calcium Carbonate 500 MG Tablet PO SCH (21:01)
[2023-01-06] MEDS: Donepezil 5 MG Tab PO SCH (21:01)
[2023-01-06] MEDS: Tamsulosin 0.4 MG Cap.ER PO SCH (21:01)
[2023-01-06] MEDS: Citalopram 10 MG Tab PO SCH (21:02)
[2023-01-06] MEDS: Apixaban 5 MG Tab PO SCH (21:02)
[2023-01-06] MEDS: Melatonin 3 MG Tab PO SCH (21:02)
[2023-01-06] MEDS: Metoprolol Succinate 50 MG Tab.ER PO SCH (21:03)
[2023-01-07] MEDS: Pantoprazole 40 MG Tab.CR PO SCH (06:21)
[2023-01-07] MEDS: Apixaban 5 MG Tab PO SCH ×2 (08:16→21:00)
[2023-01-07] MEDS: Amoxicillin/Clavulanate K 875-125 MG Tab PO SCH ×2 (08:16→21:00)
[2023-01-07] MEDS: Magnesium Chloride 64 MG Tab.ER PO SCH (08:16)
[2023-01-07] MEDS: Calcium Carbonate 500 MG Tablet PO SCH ×2 (08:16→21:01)
[2023-01-07] MEDS: Furosemide 40 MG Tab PO SCH (08:17)
[2023-01-07] MEDS: Ferrous Sulfate 325 MG Tab PO SCH (08:17)
[2023-01-07] MEDS: Metoprolol Succinate 50 MG Tab.ER PO SCH ×2 (08:17→21:03)
[2023-01-07] MEDS: Cholecalciferol (Vitamin D3) 25 MCG Tab PO SCH (08:17)
[2023-01-07] MEDS: Empagliflozin 10 MG Tab PO SCH (08:17)
[2023-01-07] MEDS: Potassium Chloride 20 MEQ Tab.ER PO SCH (08:17)
[2023-01-07] MEDS: Lidocaine 4% 1 each Patch TOP SCH (08:17)
[2023-01-07] MEDS: Citalopram 10 MG Tab PO SCH (21:00)
[2023-01-07] MEDS: Tamsulosin 0.4 MG Cap.ER PO SCH (21:00)
[2023-01-07] MEDS: Donepezil 5 MG Tab PO SCH (21:00)
[2023-01-07] MEDS: Melatonin 3 MG Tab PO SCH (21:01)
[2023-01-07] MEDS: Simvastatin 40 MG Tab PO SCH (21:02)
[2023-01-08] MEDS: Pantoprazole 40 MG Tab.CR PO SCH (06:06)
[2023-01-08] MEDS: Furosemide 40 MG Tab PO SCH (09:19)
[2023-01-08] MEDS: Ferrous Sulfate 325 MG Tab PO SCH (09:19)
[2023-01-08] MEDS: Lidocaine 4% 1 each Patch TOP SCH (09:19)
[2023-01-08] MEDS: Calcium Carbonate 500 MG Tablet PO SCH ×2 (09:19→20:26)
[2023-01-08] MEDS: Amoxicillin/Clavulanate K 875-125 MG Tab PO SCH ×2 (09:19→20:25)
[2023-01-08] MEDS: Apixaban 5 MG Tab PO SCH ×2 (09:20→20:25)
[2023-01-08] MEDS: Magnesium Chloride 64 MG Tab.ER PO SCH (09:20)
[2023-01-08] MEDS: Cholecalciferol (Vitamin D3) 25 MCG Tab PO SCH (09:20)
[2023-01-08] MEDS: Empagliflozin 10 MG Tab PO SCH (09:20)
[2023-01-08] MEDS: Metoprolol Succinate 50 MG Tab.ER PO SCH ×2 (09:20→20:27)
[2023-01-08] MEDS: Potassium Chloride 20 MEQ Tab.ER PO SCH (09:20)
[2023-01-08] MEDS: Citalopram 10 MG Tab PO SCH (20:25)
[2023-01-08] MEDS: Donepezil 5 MG Tab PO SCH (20:25)
[2023-01-08] MEDS: Simvastatin 40 MG Tab PO SCH (20:26)
[2023-01-08] MEDS: Melatonin 3 MG Tab PO SCH (20:26)
[2023-01-08] MEDS: Tamsulosin 0.4 MG Cap.ER PO SCH (20:26)
[2023-01-09] MEDS: Pantoprazole 40 MG Tab.CR PO SCH (05:11)
[2023-01-09] MEDS: Empagliflozin 10 MG Tab PO SCH (08:19)
[2023-01-09] MEDS: Lidocaine 4% 1 each Patch TOP SCH (08:19)
[2023-01-09] MEDS: Cholecalciferol (Vitamin D3) 25 MCG Tab PO SCH (08:19)
[2023-01-09] MEDS: Metoprolol Succinate 50 MG Tab.ER PO SCH ×2 (08:19→20:21)
[2023-01-09] MEDS: Apixaban 5 MG Tab PO SCH ×2 (08:20→20:21)
[2023-01-09] MEDS: Calcium Carbonate 500 MG Tablet PO SCH ×2 (08:20→20:21)
[2023-01-09] MEDS: Magnesium Chloride 64 MG Tab.ER PO SCH (08:20)
[2023-01-09] MEDS: Potassium Chloride 20 MEQ Tab.ER PO SCH (08:21)
[2023-01-09] MEDS: Furosemide 40 MG Tab PO SCH (08:21)
[2023-01-09] MEDS: Ferrous Sulfate 325 MG Tab PO SCH (08:22)
[2023-01-09] MEDS: Citalopram 10 MG Tab PO SCH (20:21)
[2023-01-09] MEDS: Tamsulosin 0.4 MG Cap.ER PO SCH (20:21)
[2023-01-09] MEDS: Donepezil 5 MG Tab PO SCH (20:21)
[2023-01-09] MEDS: Melatonin 3 MG Tab PO SCH (20:21)
[2023-01-09] MEDS: Simvastatin 40 MG Tab PO SCH (20:21)
[2023-01-10] MEDS: Pantoprazole 40 MG Tab.CR PO SCH (06:13)
[2023-01-10] MEDS: Furosemide 40 MG Tab PO SCH (09:30)
[2023-01-10] MEDS: Potassium Chloride 20 MEQ Tab.ER PO SCH (09:30)
[2023-01-10] MEDS: Apixaban 5 MG Tab PO SCH ×2 (09:30→20:06)
[2023-01-10] MEDS: Lidocaine 4% 1 each Patch TOP SCH (09:30)
[2023-01-10] MEDS: Metoprolol Succinate 50 MG Tab.ER PO SCH ×2 (09:30→20:06)
[2023-01-10] MEDS: Calcium Carbonate 500 MG Tablet PO SCH ×2 (09:30→20:06)
[2023-01-10] MEDS: Magnesium Chloride 64 MG Tab.ER PO SCH (09:30)
[2023-01-10] MEDS: Ferrous Sulfate 325 MG Tab PO SCH (09:30)
[2023-01-10] MEDS: Empagliflozin 10 MG Tab PO SCH (09:31)
[2023-01-10] MEDS: Cholecalciferol (Vitamin D3) 25 MCG Tab PO SCH (09:31)
[2023-01-10] MEDS: Citalopram 10 MG Tab PO SCH (20:06)
[2023-01-10] MEDS: Simvastatin 40 MG Tab PO SCH (20:06)
[2023-01-10] MEDS: Donepezil 5 MG Tab PO SCH (20:06)
[2023-01-10] MEDS: Melatonin 3 MG Tab PO SCH (20:06)
[2023-01-10] MEDS: Tamsulosin 0.4 MG Cap.ER PO SCH (20:06)
[2023-01-11] MEDS: Pantoprazole 40 MG Tab.CR PO SCH (06:13)
[2023-01-11] MEDS: Apixaban 5 MG Tab PO SCH ×2 (08:05→20:24)
[2023-01-11] MEDS: Lidocaine 4% 1 each Patch TOP SCH (08:05)
[2023-01-11] MEDS: Ferrous Sulfate 325 MG Tab PO SCH (08:06)
[2023-01-11] MEDS: Empagliflozin 10 MG Tab PO SCH (08:06)
[2023-01-11] MEDS: Potassium Chloride 20 MEQ Tab.ER PO SCH (08:06)
[2023-01-11] MEDS: Furosemide 40 MG Tab PO SCH (08:07)
[2023-01-11] MEDS: Magnesium Chloride 64 MG Tab.ER PO SCH (08:07)
[2023-01-11] MEDS: Calcium Carbonate 500 MG Tablet PO SCH ×2 (08:08→20:24)
[2023-01-11] MEDS: Metoprolol Succinate 50 MG Tab.ER PO SCH ×2 (08:08→20:24)
[2023-01-11] MEDS: Cholecalciferol (Vitamin D3) 25 MCG Tab PO SCH (08:09)
[2023-01-11] MEDS: Donepezil 5 MG Tab PO SCH (20:22)
[2023-01-11] MEDS: Melatonin 3 MG Tab PO SCH (20:24)
[2023-01-11] MEDS: Citalopram 10 MG Tab PO SCH (20:24)
[2023-01-11] MEDS: Tamsulosin 0.4 MG Cap.ER PO SCH (20:24)
[2023-01-11] MEDS: Simvastatin 40 MG Tab PO SCH (20:24)
[2023-01-12] MEDS: Pantoprazole 40 MG Tab.CR PO SCH (06:10)
[2023-01-12] MEDS: Magnesium Chloride 64 MG Tab.ER PO SCH (08:12)
[2023-01-12] MEDS: Metoprolol Succinate 50 MG Tab.ER PO SCH ×2 (08:12→20:17)
[2023-01-12] MEDS: Calcium Carbonate 500 MG Tablet PO SCH ×2 (08:12→20:12)
[2023-01-12] MEDS: Lidocaine 4% 1 each Patch TOP SCH (08:12)
[2023-01-12] MEDS: Furosemide 40 MG Tab PO SCH (08:12)
[2023-01-12] MEDS: Potassium Chloride 20 MEQ Tab.ER PO SCH (08:12)
[2023-01-12] MEDS: Ferrous Sulfate 325 MG Tab PO SCH (08:13)
[2023-01-12] MEDS: Empagliflozin 10 MG Tab PO SCH (08:13)
[2023-01-12] MEDS: Cholecalciferol (Vitamin D3) 25 MCG Tab PO SCH (08:13)
[2023-01-12] MEDS: Apixaban 5 MG Tab PO SCH ×2 (08:14→20:12)
[2023-01-12] MEDS: Donepezil 5 MG Tab PO SCH (20:11)
[2023-01-12] MEDS: Citalopram 10 MG Tab PO SCH (20:12)
[2023-01-12] MEDS: Melatonin 3 MG Tab PO SCH (20:12)
[2023-01-12] MEDS: Tamsulosin 0.4 MG Cap.ER PO SCH (20:12)
[2023-01-12] MEDS: Simvastatin 40 MG Tab PO SCH (20:13)
[2023-01-13] MEDS: Pantoprazole 40 MG Tab.CR PO SCH (06:09)
[2023-01-13] MEDS: Magnesium Chloride 64 MG Tab.ER PO SCH (08:01)
[2023-01-13] MEDS: Lidocaine 4% 1 each Patch TOP SCH (08:01)
[2023-01-13] MEDS: Apixaban 5 MG Tab PO SCH ×2 (08:02→20:06)
[2023-01-13] MEDS: Cholecalciferol (Vitamin D3) 25 MCG Tab PO SCH (08:02)
[2023-01-13] MEDS: Ferrous Sulfate 325 MG Tab PO SCH (08:02)
[2023-01-13] MEDS: Metoprolol Succinate 50 MG Tab.ER PO SCH ×2 (08:02→22:02)
[2023-01-13] MEDS: Calcium Carbonate 500 MG Tablet PO SCH ×2 (08:02→20:06)
[2023-01-13] MEDS: Empagliflozin 10 MG Tab PO SCH (08:02)
[2023-01-13] MEDS: Potassium Chloride 20 MEQ Tab.ER PO SCH (08:03)
[2023-01-13] MEDS: Furosemide 40 MG Tab PO SCH (08:03)
[2023-01-13] MEDS: Citalopram 10 MG Tab PO SCH (20:06)
[2023-01-13] MEDS: Donepezil 5 MG Tab PO SCH (20:06)
[2023-01-13] MEDS: Simvastatin 40 MG Tab PO SCH (20:06)
[2023-01-13] MEDS: Melatonin 3 MG Tab PO SCH (20:06)
[2023-01-13] MEDS: Tamsulosin 0.4 MG Cap.ER PO SCH (20:06)
[2023-01-14] MEDS: Pantoprazole 40 MG Tab.CR PO SCH (05:43)
[2023-01-14] MEDS: Lidocaine 4% 1 each Patch TOP SCH (08:03)
[2023-01-14] MEDS: Furosemide 40 MG Tab PO SCH (08:04)
[2023-01-14] MEDS: Magnesium Chloride 64 MG Tab.ER PO SCH (08:04)
[2023-01-14] MEDS: Calcium Carbonate 500 MG Tablet PO SCH ×2 (08:04→21:14)
[2023-01-14] MEDS: Apixaban 5 MG Tab PO SCH ×2 (08:04→21:13)
[2023-01-14] MEDS: Ferrous Sulfate 325 MG Tab PO SCH (08:04)
[2023-01-14] MEDS: Cholecalciferol (Vitamin D3) 25 MCG Tab PO SCH (08:05)
[2023-01-14] MEDS: Potassium Chloride 20 MEQ Tab.ER PO SCH (08:05)
[2023-01-14] MEDS: Empagliflozin 10 MG Tab PO SCH (08:05)
[2023-01-14] MEDS: Metoprolol Succinate 50 MG Tab.ER PO SCH ×2 (08:06→21:13)
[2023-01-14] MEDS: Melatonin 3 MG Tab PO SCH (21:13)
[2023-01-14] MEDS: Donepezil 5 MG Tab PO SCH (21:13)
[2023-01-14] MEDS: Simvastatin 40 MG Tab PO SCH (21:14)
[2023-01-14] MEDS: Tamsulosin 0.4 MG Cap.ER PO SCH (21:14)
[2023-01-14] MEDS: Citalopram 10 MG Tab PO SCH (21:14)
[2023-01-15] MEDS: Pantoprazole 40 MG Tab.CR PO SCH (06:47)
[2023-01-15] MEDS: Ferrous Sulfate 325 MG Tab PO SCH (09:00)
[2023-01-15] MEDS: Cholecalciferol (Vitamin D3) 25 MCG Tab PO SCH (09:00)
[2023-01-15] MEDS: Apixaban 5 MG Tab PO SCH ×2 (09:00→21:30)
[2023-01-15] MEDS: Empagliflozin 10 MG Tab PO SCH (09:00)
[2023-01-15] MEDS: Calcium Carbonate 500 MG Tablet PO SCH ×2 (09:00→21:30)
[2023-01-15] MEDS: Magnesium Chloride 64 MG Tab.ER PO SCH (09:00)
[2023-01-15] MEDS: Furosemide 40 MG Tab PO SCH (09:00)
[2023-01-15] MEDS: Lidocaine 4% 1 each Patch TOP SCH (09:09)
[2023-01-15] MEDS: Potassium Chloride 20 MEQ Tab.ER PO SCH (09:45)
[2023-01-15] MEDS: Metoprolol Succinate 50 MG Tab.ER PO SCH ×2 (09:45→21:30)
[2023-01-15 10:54] LABS: BLOOD UREA NITROGEN,BUN 44 mg/dL (7-18); BUN/CREATININE RATIO 27.5 (9-20); CALCIUM 8.9 mg/dL (8.6-10.2); CARBON DIOXIDE,CO2 29 mmol/L (21-32); CHLORIDE,CL 101 mmol/L (100-110); CREATININE 1.6 mg/dL (0.70-1.30); ESTIMATED GFR 42 mL/min (>60); GLUCOSE RANDOM 262 mg/dL (80-116); POTASSIUM,K 4.9 mmol/L (3.5-5.3); SODIUM,NA 136 mmol/L (135-145)
[2023-01-15] MEDS: Melatonin 3 MG Tab PO SCH (21:30)
[2023-01-15] MEDS: Simvastatin 40 MG Tab PO SCH (21:30)
[2023-01-15] MEDS: Citalopram 10 MG Tab PO SCH (21:30)
[2023-01-15] MEDS: Tamsulosin 0.4 MG Cap.ER PO SCH (21:30)
[2023-01-15] MEDS: Donepezil 5 MG Tab PO SCH (21:30)
[2023-01-16] MEDS: Pantoprazole 40 MG Tab.CR PO SCH (05:17)
[2023-01-16] MEDS: Magnesium Chloride 64 MG Tab.ER PO SCH (09:50)
[2023-01-16] MEDS: Calcium Carbonate 500 MG Tablet PO SCH ×2 (09:51→21:40)
[2023-01-16] MEDS: Metoprolol Succinate 50 MG Tab.ER PO SCH ×2 (09:51→21:41)
[2023-01-16] MEDS: Cholecalciferol (Vitamin D3) 25 MCG Tab PO SCH (09:52)
[2023-01-16] MEDS: Empagliflozin 10 MG Tab PO SCH (09:52)
[2023-01-16] MEDS: Ferrous Sulfate 325 MG Tab PO SCH (09:52)
[2023-01-16] MEDS: Furosemide 40 MG Tab PO SCH (09:52)
[2023-01-16] MEDS: Lidocaine 4% 1 each Patch TOP SCH (10:07)
[2023-01-16] MEDS: Potassium Chloride 20 MEQ Tab.ER PO SCH (10:10)
[2023-01-16] MEDS: Apixaban 5 MG Tab PO SCH ×2 (10:11→21:40)
[2023-01-16] MEDS: Citalopram 10 MG Tab PO SCH (21:40)
[2023-01-16] MEDS: Melatonin 3 MG Tab PO SCH (21:41)
[2023-01-16] MEDS: Donepezil 5 MG Tab PO SCH (21:41)
[2023-01-16] MEDS: Tamsulosin 0.4 MG Cap.ER PO SCH (21:42)
[2023-01-16] MEDS: Simvastatin 40 MG Tab PO SCH (21:42)
[2023-01-17] MEDS: Pantoprazole 40 MG Tab.CR PO SCH (06:22)
[2023-01-17] MEDS: Apixaban 5 MG Tab PO SCH ×2 (09:29→21:35)
[2023-01-17] MEDS: Empagliflozin 10 MG Tab PO SCH (09:30)
[2023-01-17] MEDS: Ferrous Sulfate 325 MG Tab PO SCH (09:30)
[2023-01-17] MEDS: Magnesium Chloride 64 MG Tab.ER PO SCH (09:30)
[2023-01-17] MEDS: Furosemide 40 MG Tab PO SCH (09:30)
[2023-01-17] MEDS: Potassium Chloride 20 MEQ Tab.ER PO SCH (09:30)
[2023-01-17] MEDS: Cholecalciferol (Vitamin D3) 25 MCG Tab PO SCH (09:31)
[2023-01-17] MEDS: Calcium Carbonate 500 MG Tablet PO SCH ×2 (09:31→21:36)
[2023-01-17] MEDS: Lidocaine 4% 1 each Patch TOP SCH (09:31)
[2023-01-17] MEDS: Metoprolol Succinate 50 MG Tab.ER PO SCH ×2 (09:31→21:34)
[2023-01-17] MEDS: Melatonin 3 MG Tab PO SCH (21:34)
[2023-01-17] MEDS: Simvastatin 40 MG Tab PO SCH (21:35)
[2023-01-17] MEDS: Tamsulosin 0.4 MG Cap.ER PO SCH (21:35)
[2023-01-17] MEDS: Citalopram 10 MG Tab PO SCH (21:35)
[2023-01-17] MEDS: Donepezil 5 MG Tab PO SCH (21:37)
[2023-01-18] MEDS: Pantoprazole 40 MG Tab.CR PO SCH (05:10)
[2023-01-18] MEDS: Ferrous Sulfate 325 MG Tab PO SCH (08:47)
[2023-01-18] MEDS: Empagliflozin 10 MG Tab PO SCH (08:47)
[2023-01-18] MEDS: Lidocaine 4% 1 each Patch TOP SCH (08:47)
[2023-01-18] MEDS: Apixaban 5 MG Tab PO SCH (08:47)
[2023-01-18] MEDS: Potassium Chloride 20 MEQ Tab.ER PO SCH (08:48)
[2023-01-18] MEDS: Furosemide 40 MG Tab PO SCH (08:48)
[2023-01-18] MEDS: Calcium Carbonate 500 MG Tablet PO SCH (08:49)
[2023-01-18] MEDS: Metoprolol Succinate 50 MG Tab.ER PO SCH (08:49)
[2023-01-18] MEDS: Magnesium Chloride 64 MG Tab.ER PO SCH (08:49)
[2023-01-18] MEDS: Cholecalciferol (Vitamin D3) 25 MCG Tab PO SCH (08:51)
== END 2023-01-18 10:10 | DRG 948 ==
LOC: FB.MS 07:00
PROVIDERS: ADMIT Student in an Organized Health Care Education/Training Program; ATTEND Family Medicine
DX: R53.1 Weakness (principal); I50.22 Chronic systolic (congestive) heart failure; J90 Pleural effusion, not elsewhere classified; F03.B3 Unspecified dementia, moderate, with mood disturbance; R26.2 Difficulty in walking, not elsewhere classified; E86.0 Dehydration; E11.22 Type 2 diabetes mellitus with diabetic chronic kidney disease; N18.31 Chronic kidney disease, stage 3a; E11.40 Type 2 diabetes mellitus with diabetic neuropathy, unspecified; I48.0 Paroxysmal atrial fibrillation; D63.1 Anemia in chronic kidney disease; E78.00 Pure hypercholesterolemia, unspecified; I25.5 Ischemic cardiomyopathy; R29.818 Other symptoms and signs involving the nervous system; Z95.0 Presence of cardiac pacemaker; Z79.01 Long term (current) use of anticoagulants; Z95.1 Presence of aortocoronary bypass graft; Z96.649 Presence of unspecified artificial hip joint; Z99.81 Dependence on supplemental oxygen; Z79.899 Other long term (current) drug therapy
CPT/HCPCS: 36415; 80048; 83880; 97116-GP; 97530-GO; 97530-GP; 97535-GO; 99306; 99308; 99310; 99315; A9270-GY

== ENCOUNTER 2023-06-23 20:50 | Emergency (ER) | payer MEDICARE, OTHER | END 2023-06-23 21:30 | disposition home or self-care (01) | LOC: FB.ED 20:50 | DX: S51.011A Laceration without foreign body of right elbow, initial encounter (principal); I11.0 Hypertensive heart disease with heart failure; E78.00 Pure hypercholesterolemia, unspecified; I50.9 Heart failure, unspecified; I25.10 Atherosclerotic heart disease of native coronary artery without angina pectoris; E11.9 Type 2 diabetes mellitus without complications; I25.810 Atherosclerosis of coronary artery bypass graft(s) without angina pectoris; Z79.01 Long term (current) use of anticoagulants; W19.XXXA Unspecified fall, initial encounter; Z79.84 Long term (current) use of oral hypoglycemic drugs; Z79.899 Other long term (current) drug therapy | CPT/HCPCS: 99283 ==